=== PATIENT | male | born 1995 ===

== ENCOUNTER 2017-09-22 14:34 | Emergency (ER) | payer SELFPAY ==
[2017-09-22 14:44] VITALS: BP 112/71; PULSE 72; RESP 16; TEMP 98; O2SAT 98
== END 2017-09-22 15:02 | disposition left against medical advice (07) ==
LOC: C.ER 14:34
DX: Z02.89 Encounter for other administrative examinations (principal); Z00.00 Encounter for general adult medical examination without abnormal findings

== ENCOUNTER 2018-01-06 09:02 | Emergency (ER) | payer SELFPAY ==
[2018-01-06 09:18] VITALS: BP 117/81; PULSE 91; RESP 18; TEMP 99.3; O2SAT 99
[2018-01-06] MEDS ORDERED: guaiFENesin DM 100 mg-10 mg/5 ml UD PO STA (09:33)
[2018-01-06] MEDS ORDERED: guaiFENesin DM 100 mg-10 mg/5 ml UD ONE (09:44)
--- NOTE | 2018-01-06 10:01 | C.PDOC ---
History Of Present Illness 22-year-old male, presents to the emergency department with complaints of a cough, runny nose and sore throat since last night. Patient denies fever, nausea/vomiting, chest pain, back pain, rash or any other associated symptoms. No other complaints at this time. Time Seen by Provider: 01/06/18 09:10 Chief Complaint (Nursing): Cough, Cold, Congestion History Per: Patient History/Exam Limitations: no limitations Current Symptoms Are (Timing): Still Present Past Medical History Vital Signs: Last Vital Signs Temp 99.3 F 01/06/18 09:14 Pulse 91 H 01/06/18 09:14 Resp 18 01/06/18 09:14 BP 117/81 01/06/18 09:14 Pulse Ox 99 01/06/18 09:14 - Social History Hx Alcohol Use: No Hx Substance Use: No - Immunization History Hx Tetanus Toxoid Vaccination: No Hx Influenza Vaccination: No Hx Pneumococcal Vaccination: No Review Of Systems Constitutional: Negative for: Fever, Chills ENT: Positive for: Nose Discharge, Nose Congestion Respiratory: Positive for: Cough. Negative for: Shortness of Breath Gastrointestinal: Negative for: Vomiting Skin: Negative for: Rash Physical Exam - Physical Exam Appears: Non-toxic, No Acute Distress Skin: Warm, Dry, No Rash Head: Atraumatic Eye(s): bilateral: Normal Inspection Ear(s): Bilateral: Normal Nose: Discharge Oral Mucosa: Moist Lips: Normal Appearing Throat: No Erythema, No Exudate, No Drooling, No Mass Neck: Normal ROM Chest: Symmetrical Cardiovascular: Rhythm Regular, No Murmur Respiratory: Normal Breath Sounds, No Accessory Muscle Use, No Wheezing Extremity: Normal ROM Neurological/Psych: Oriented x3 ED Course And Treatment O2 Sat by Pulse Oximetry: 99 Pulse Ox Interpretation: Normal (RA) Progress Note: Pt treated with Robitussin and Ibuprofen. Influenza AB ordered and reviewed. Disposition Counseled Patient/Family Regarding: Studies Performed, Diagnosis, Need For Followup, Rx Given - Disposition Referrals: [facility] [Outside] Disposition: HOME/ ROUTINE Disposition Time: 10:00 Condition: STABLE Additional Instructions: FOLLOW UP WITH YOUR DOCTOR/CLINIC IN 1-2 DAYS USE MEDICATIONS DIRECTED DRINK PLENTY OF FLUIDS RETURN TO EMERGENCY ROOM IF SYMPTOMS BECOME WORSE SEGUIR CON ECHEVERRIA MDICO / CLNICA EN 1-2 LEVIN UTILICE MEDICAMENTOS HASMUKH SE DIRIGE BEBER MU[place] LQUID[place] VUELVA A LA CARMEN DE EMERGENCIA SI LOS SNTOMAS SE HACEN PEOR Prescriptions: Benzonatate [Tessalon Perles] 100 mg PO BID PRN #15 sgl PRN Reason: Cough Ibuprofen [Motrin Tab] 600 mg PO Q6 PRN #30 tab PRN Reason: fever/pain Phenol/Glycerin [Chloraseptic Max [place]] 1 spray MM Q6 PRN #1 spray PRN Reason: THROAT PAIN Instructions: Upper Respiratory Infection (ED) Forms: [employer] (Gambian) Print Language: CHINESE - Clinical Impression Clinical Impression: Viral disease, Upper respiratory infection - Scribe Statement The provider has reviewed the documentation as recorded by the Scribe (Oilvia Mckeon) Provider Attestation: All medical record entries made by the Scribe were at my direction and personally dictated by me. I have reviewed the chart and agree that the record accurately reflects my personal performance of the history, physical exam, medical decision making, and the department course for this patient. I have also personally directed, reviewed, and agree with the discharge instructions and disposition.
== END 2018-01-06 10:06 | disposition home or self-care (01) ==
LOC: C.ER 09:02
DX: B34.9 Viral infection, unspecified (principal); J06.9 Acute upper respiratory infection, unspecified